=== PATIENT | male | born 1960 | race Caucasian/White ===

== ENCOUNTER → 2019-04-24 | Outpatient (CLI) | payer OTHER ==
--- NOTE | 2019-04-24 10:34 | RADIOLOGY REPORT (SQ) ---
EXAM DESCRIPTION: CT SINUSES FOR ENT COMPLETED DATE/TIME: 04/24/2019 10:15 am REASON FOR STUDY: CHRONIC SINUSITIS, UNSPECIFIED J32.9 CHRONIC SINUSITIS, UNSPECIFIED COMPARISON: None. TECHNIQUE: Noncontrast scanning through the paranasal sinuses using bone algorithm. Reconstructed MPR images reviewed. All images stored on PACS. All CT scanners at this facility use dose modulation, iterative reconstruction, and/or weight based d osing when appropriate to reduce radiation dose to as low as reasonably achievable (ALARA). [facility]: Dose Right [facility]: CareDose [facility]: Dose Right [facility]: Teradose 4D [facility]: Ailvxing net RADIATION DOSE: 47mGy. LIMITATIONS: None. FINDINGS: Right sinuses and drainage pathways: Post-surgical changes: None. Frontal sinus: Normal. Frontoethmoidal Recess: Mucous membrane thickening on sagittal images 28 through 30. Anterior Ethmoid Sinuses: Mucous membrane thickening on coronal images 18-22. Posterior Ethmoid Sinuses: Normal. Sphenoid Sinus: Normal. Sphenoethmoidal Recess: Normal. Maxillary Sinus: Mucous membrane thickening along the floor and outlet of the right maxillary sinus Ostiomeatal Complex: Mucous membrane thickening Left Sinuses and Drainage Pathways: Post-Surgical Changes: None. Frontal Sinus: Opacified Frontoethmoidal Recess: Opacified Anterior Ethmoid Sinuses: Opacified Posterior Ethmoid Sinuses: Opacified Sphenoid Sinus: Normal. Sphenoethmoidal Recess: Normal. Maxillary Sinus: Opacified Ostiomeatal Complex: Opacified Right Olfactory Fossa: No polyps. Left Olfactory Fossa: No polyps. Middle Turbinate Melody Bullosa: No. Paradoxical Middle Turbinate: No. Atelectatic Uncinated Process: No. Frontal Khadar Cell Type I: On the left Frontal Khadar Cell Type II: No. Interfrontal Sinus Septal Cell: Yes, on coronal image 18 Supra-Orbital Ethmoid: None. Frontal Bullar Cell: None. Suprabullar Bullar Cell: None. Sphenoethmoidal (Onodi) Cell: None. Pneumatization of the Anterior Clinoid Processes: No Hypoplastic Maxillary Sinus: None. Osteoneogenesis: None. Bone Dehiscence:None. Nasal Cavity: Normal. Nasal Septum: Midline, left nasal septal spur coronal image 21 Anatomic Variants: Right Vidian Canal: Normal. Left Vidian Canal: Normal. IMPRESSION: Inflammatory changes left greater than right. TECHNICAL DOCUMENTATION: JOB ID: [id number] Quality ID # [id number]: Final reports with documentation of one or more dose reduction techniques (e.g., Au tomated exposure control, adjustment of the mA and/or kV according to patient size, use of iterative reconstruction technique) 2010 [employer]- All Rights Reserved Reading location - IP/workstation name: [email or web address]
== END ==
LOC: RAD 10:05
PROVIDERS: ATTEND Otolaryngology
DX: J32.9 Chronic sinusitis, unspecified (principal)
CPT/HCPCS: 70486

== ENCOUNTER → 2019-04-24 | Outpatient (CLI) | payer OTHER | LOC: OD 11:14 | PROVIDERS: ATTEND Otolaryngology | DX: J30.9 Allergic rhinitis, unspecified (principal) | CPT/HCPCS: 36415; 82785; 86003 ==

== ENCOUNTER 2019-08-12 09:23 | Day surgery (SDC) | payer OTHER ==
[~2019-08-12 09:23] MED LIST: CEFAZOLIN 2 GM/D5W RTU 2 GM/50 ML RTUPB IV PRN
[2019-08-12] MEDS ORDERED: FENTANYL CITRATE INJ/PF 100 MCG/2 ML AMPUL ONE ×2 (10:36→14:42)
[2019-08-12] MEDS ORDERED: NEOSTIGMINE METHYLSULFATE 10 MG/10 ML VIAL ONE (10:36)
[2019-08-12] MEDS ORDERED: MIDAZOLAM 2 MG/2 ML INJ ONE (10:36)
[2019-08-12] MEDS ORDERED: ROCURONIUM BROMIDE INJ 50 MG/5 ML VIAL IV ONE (10:37)
[2019-08-12] MEDS ORDERED: PROPOFOL INJ 200 MG/20 ML VIAL IV ONE ×2 (10:37→11:31)
[2019-08-12] MEDS ORDERED: LIDOCAINE 2%/EPINEPHRINE INJ 1.7 ML CARTRIDGE ONE ×2 (10:39→11:33)
[2019-08-12] MEDS ORDERED: BACITRACIN ZINC OINTMENT 15 GM ONE (10:39)
[2019-08-12] MEDS ORDERED: COCAINE HCL 4% TOPICAL SOLN 4 ML ONE (10:39)
[2019-08-12] MEDS ORDERED: OXYMETAZOLINE HCL 0.05% NASAL SPRAY 15 ML BOTTLE ONE (10:39)
[2019-08-12] MEDS ORDERED: SCOPOLAMINE HYDROBROMIDE 1.5 MG PATCH.TD72 TD PRN (11:14)
[2019-08-12] MEDS ORDERED: TRIAMCINOLONE ACETONIDE INJ 40 MG/1 ML VIAL ONE (11:57)
--- NOTE | 2019-08-12 12:23 | EKG REPORT ---
SEVERITY:- ABNORMAL ECG - SINUS RHYTHM BORDERLINE LEFT AXIS DEVIATION NONSPECIFIC ST-T CHANGES- INFERIOR LEADS POOR R WAVE PROGRESSION ANTERIOR LEADS : Confirmed by: Alfredo Preston MD 12-Aug-2019 12:22:53
[2019-08-12] MEDS ORDERED: LIDOCAINE 2%/EPINEPHRINE INJ 20 ML VIAL ONE (13:44)
--- NOTE | 2019-08-12 14:37 | Operative Report ---
Operative Report-[facility] Operative Report: Date: 12 August 2019 History: 59-year-old male with a history of chronic sinusitis, nasal septal dev iation, nasal vestibular stenosis and inferior turbinate hypertrophy. Patient presents today for a endoscopic sinus surgery, nasal septoplasty, repair nasal vestibular stenosis and inferior turbinate reduction. Informed consent was obtained from the patient Preoperative Diagnosis: 1. Chronic Sinusitis 2. Deviated Nasal Septum 3. Nasal vestibular stenosis, bilaterally 4. Inferior turbinate hypertrophy, bilaterally Postoperative Diagnosis: Same as above Procedure: 1. Rigid nasal endoscopy bilateral 2. Maxillary antrostomy, right side 3. Maxillary antrostomy, left side 4. Anterior ethmoidectomy, right side 5. Anterior ethmoidectomy, left side 6. Frontal sinusotomy, left side 7. Nasal septoplasty 8. Repair nasal vestibular stenosis, right side [CPT - 71025] 9. Repair nasal vestibular stenosis, left side [CPT - 22487] 10. Inferior turbinate reduction, right side 11. Inferior turbinate reduction, left side Surgeon: Donald Fox MD, FACS, [facility] Anesthesia: GETA Description of the procedure: After receiving informed consent, the patient was taken to the operating room and placed supine on the operating table. After successful induction and intubation by anesthesia, cottonoids saturated with 4% cocaine were placed into each nasal cavity. After 5 minutes they were removed and the nasal septum along with the inferior turbinates, middle turbinates and lateral nasal wall were injected with 2% Xylocaine with 1-100,000 epinephrine. The 4% cocaine cottonoids within placed back into each nasal cavity. The patient was then prepped and draped in a sterile fashion. The image guidance system was then calibrated to the patient and found to be functioning normally. Attention was then directed to the septum. A 15 blade was used to make a hemitransfixion incision on the left side. Next using a Hernandez and then A Ynes elevator, a mucoperichondrial/mucoperiosteal flap was elevated back to the sphenoid rostrum. This was then elevated onto the nasal floor. A mucoperichondrial flap was elevated around the caudal edge of the septum and onto the right side. This exposed both sides of the cartilaginous/osseous septum. The osseocartilaginous junction was and a mucoperiosteal flap was elevated on the right side. Nunes scissors were used to make horizontal cuts in the perpendicular plate of the ethmoid bone, superiorly and inferiorly. Yang-Delgado forceps were used to remove this. A vomeroethmoid spur was identified and the mucosa was carefully dissected from it. A V-chisel was used to remove this spur. An inferior cartilage spur was removed using a D knife . Maxillary crest spur was removed using a V chisel. [place]-Sin's were used to remove a high septal deflection in the area of the internal nasal valve. The septum was viewed with the flaps in place and found to be relatively straight. The root of the middle turbinates were visible on both sides. Attention then was directed towards the endoscopic sinus portion of the procedure.The cottonoids were removed from the left side. The rigid nasal endoscope was then inserted and the middle turbinate was visualized and medialized using a freer elevator. A seeker was placed into the infundibulum and the uncinate process was displaced anteriorly. A sickle knife was used to make an incision along the lateral portion of the uncinate process. An uncinectomy was accomplished using the microdebrider and Blakesley forceps. The lateral nasal wall mucosa was erythematous, edematous and inflamed. An olive- tipped sucker was used to gain entrance into the maxillary sinus through the natural os. Purulent material aspirated from the maxillary sinus. The antrostomy is widened anteriorly using backbiters and then using microdebrider and Blakesley forceps it was widened inferiorly and posteriorly. The mucosa of the maxillary sinus was identified and found to be edematous. The maxillary sinus was then irrigated with normal saline using the hydro-irrigating system. An anterior ethmoidectomy was performed using Blakesley forceps and the microdebrider. Polypoid mucosa was noted in the nasofrontal area this was removed using a microdebrider. A frontal sinusotomy was performed the microdebrider. A cottonoid saturated with Afrin was then placed into the middle meatus. Attention was then directed to the right side where in a similar fashion a maxillary antrostomy and anterior ethmoidectomy were performed. The right intranasal mucosa appeared normal without evidence of erythema or edema. Right maxillary sinus mucosa was normal. The rajiv transfixion incision was closed using 4-0 chromic and a 4-0 plain gut whip stitch was used to secure the septal flaps. Attention was then directed to the nasal valve area on the right, where the [employer] nasal airway remodeling system was used to repair the nasal vestibular stenosis. The handpiece was placed superiorly at the caudal margin of the upper lateral cartilage and the device was activated. This was repeated 2 more times marching inferiorly towards the piriform aperture. A similar procedure was done on the left. Attention was then directed to the inferior turbinates where an inferior turbi jasmyn reduction was performed bilaterally. The Celon was used to perform an intramural cauterization bilaterally. Then each turbinate was medialized and then lateralized using a Sayer elevator . Silicon splints coated with bacitracin were placed into each nasal cavity and secured with a 2-0 prolene. Afrin soaked cottonoids were placed into each nasal cavity and secured to each other in front of the nose. The cottonoid was then removed from the middle meatus and keeping the middle turbinate medialized an absorbable pack was placed into the middle meatus. The packing was then infiltrated with Kenalog 40. This was performed on both sides. The patient was then given back to anesthesia who successfully extubated the patient without any complications. Estimated blood loss: 20 mL Fluids: 1000 mL The patient was then transported to the postanesthesia care unit in stable condition with spontaneous respirations. No complications.
[2019-08-12] MEDS ORDERED: PROMETHAZINE HCL INJ 25 MG/1 ML VIAL ONE (14:58)
[2019-08-12] MEDS ORDERED: OXYCODONE-ACETAMINOPHEN 5-325 MG TABLET ONE (14:59)
== END 2019-08-12 16:12 | disposition home or self-care (01) ==
LOC: SC 09:23
PROVIDERS: ATTEND Otolaryngology
DX: J32.9 Chronic sinusitis, unspecified (principal); J34.89 Other specified disorders of nose and nasal sinuses; J34.2 Deviated nasal septum; J30.9 Allergic rhinitis, unspecified
CPT/HCPCS: 93005; 93010; 00160; 31256; 31254; 31276; 30520; 30140; 30465; C1751; C1769; J2250; J3490 ×6; J3010; J2710; J2550; J3301; J2704; J0690; 160